=== PATIENT | male | born 1980 | race Two or more races ===

== ENCOUNTER 2019-01-14 13:00 | Outpatient (CLI) | payer BC | END 2019-01-14 23:59 | disposition home or self-care (01) | LOC: WOU 13:00 | PROVIDERS: ATTEND Podiatrist Foot & Ankle Surgery | DX: S92.252A Displaced fracture of navicular [scaphoid] of left foot, initial encounter for closed fracture (principal); W10.8XXA Fall (on) (from) other stairs and steps, initial encounter; Y93.01 Activity, walking, marching and hiking; Y92.89 Other specified places as the place of occurrence of the external cause | CPT/HCPCS: G0463 ==

== ENCOUNTER 2019-01-14 13:23 | Outpatient (CLI) | payer BC | END 2019-01-14 23:59 | disposition home or self-care (01) | LOC: RAD 13:23 | PROVIDERS: ATTEND Podiatrist Foot & Ankle Surgery | DX: M79.672 Pain in left foot (principal) | CPT/HCPCS: 73630-TC ==